=== PATIENT | female | born 1950 | race Caucasian/White ===

== ENCOUNTER → 2016-07-28 | Day surgery (SDC) | payer OTHER ==
[~2016-07-28] MED LIST: AFRI0.055; BUPIVACAINE/EPINEPHRINE 0.25% 50 ML VIAL ONE; CLON0.5T PO; GABA800T PO; HYDR-3129 PO; HYDR50TA94; LACTATED RINGER'S 1,000 ML BAG IV ONE; LIDOCAINE 1%/EPINEPHrine 1:100,000 SOLN 20 ML VIAL ONE; LISI-363 PO; LORA-392 PO; METH750T2 PO; MEVA40TA6 PO; MIDAZOLAM HCL 2 MG/2 ML VIAL ONE; NORC10TA2 PO; PROPOFOL 200 MG/20 ML AMP IV ONE; UNKNOWN BP MED; VENL75TA91 PO
--- NOTE | 2016-07-28 13:31 | TN ---
cc: PERCY RECIO M.D. DATE OF SURGERY 07/28/2016 PREOPERATIVE DIAGNOSIS Right hand carpal tunnel syndrome POSTOPERATIVE DIAGNOSIS Right hand carpal tunnel syndrome PROCEDURE Open right carpal tunnel release SURGEON Otilio Recio MD ANESTHESIA TIVA ESTIMATED BLOOD LOSS Minimal INDICATION This is a 66-year female with significant right hand pain and altered sensation. Electrical studies are consistent with carpal tunnel syndrome. This patient presents for surgical treatment. PROCEDURE The patient was brought to the operating given limited sedation. The right hand was scrubbed with alcohol followed by Hibiclens followed Chloraprep and draped sterilely. Antibiotics were given within a one hour time window and a time-out was done. Local anesthesia was utilized. The hand was exsanguinated. The tourniquet was inflated to 250 mmHg. A longitudinal incision was made in line with a flexed fourth ray. The palmar fascia was opened longitudinally. The transverse carpal ligament was opened. The flexor retinaculum was opened. The median nerve was opened into the palm. The recurrent branch was identified and protected. The tourniquet let down. Hemostasis was controlled with bipolar cautery. The skin and subcutaneous tissue was approximated with interrupted 3-0 nylon in a mattress fashion. The patient was awakened and taken to the recovery room in satisfactory condition. MD WAQAR Montelongo/ELLE /1:18 PM /1:25 PM
== END | disposition home or self-care (01) ==
LOC: ESDC 10:16
PROVIDERS: ATTEND Orthopaedic Surgery Orthopaedic Surgery of the Spine
DX: G56.01 Carpal tunnel syndrome, right upper limb (principal)
CPT/HCPCS: 01810; 64721; J2250; J3010; J7120

== ENCOUNTER 2016-10-24 16:19 | Emergency (ER) | payer OTHER ==
[~2016-10-24] VITALS: Ht 157.5 cm; Wt 55.0 kg
[~2016-10-24 16:19] MED LIST changes: -BUPIVACAINE/EPINEPHRINE 0.25% 50 ML VIAL ONE; -LACTATED RINGER'S 1,000 ML BAG IV ONE; -LIDOCAINE 1%/EPINEPHrine 1:100,000 SOLN 20 ML VIAL ONE; -LORA-392 PO; -MIDAZOLAM HCL 2 MG/2 ML VIAL ONE; -PROPOFOL 200 MG/20 ML AMP IV ONE; -UNKNOWN BP MED
[2016-10-24] MEDS ORDERED: HALOPERIDOL LACTATE 5 MG/ML AMP IM ONE (16:45)
[2016-10-24] MEDS ORDERED: LORazepam 2 MG/ML VIAL IM ONE (16:45)
--- NOTE | 2016-10-24 16:50 | PD ---
HPI Chief Complaint: Lindsay act Time Seen by Provider: 16:32 Travel History International Travel<30 days: No Contact w/Intl Traveler<30days: No Traveled to known affect area: No History of Present Illness HPI The patient is a 66-year-old female who presents to the emergency department via police custody as a Lindsay act. According to police affidavit the officer went to conduct a well being checked on the patient after Dr. Leong evaluated the patient earlier in the day and heard her make suicidal statements and that she has plans on how she wants to harm herself. Upon arrival the patient is aggressive, spitting at staff, trying the bite and scratch staff, and refuses to answer questions. The patient will not answer questions in regards to A&Os and will not answer questions in regards to suicidal or homicidal ideation. The patient provides no further insight into her current medical condition. PFSH Past Medical History Arthritis: Yes Autoimmune Disease: No Blood Disorders: No Anxiety: Yes (PANIC ATTACKS) Depression: Yes Heart Rhythm Problems: No Cancer: No Cardiovascular Problems: Yes (STENTS) High Cholesterol: Yes Chest Pain: Yes Congestive Heart Failure: No Diabetes: No Diminished Hearing: No Endocrine: No Gastrointestinal Disorders: No Glaucoma: No Genitourinary: No Headaches: Yes Hiatal Hernia: No Hypertension: Yes Immune Disorder: No Musculoskeletal: Yes (ARTHRITIS) Neurologic: Yes (PINCHED NERVES FEET) Psychiatric: Yes (PANIC ATTACKS) Reproductive: No Respiratory: No Sickle Cell Disease: No Thyroid Disease: No Menopausal: Yes Past Surgical History Abdominal Surgery: Yes (ABD. HERNIA REP.) AICD: No Arteriovenous Shunt: No Body Medical Devices: LEFT ANKLE, LUMBAR & CERVICAL HARDWARE Cardiac Surgery: Yes (STENTS) Ear Surgery: No Endocrine Surgery: No Eye Surgery: No Genitourinary Surgery: No Gynecologic Surgery: Yes (TUBAL) Insulin Pump: No Joint Replacement: Yes (NARENDRA. HIPS, RIGHT SHOULDER) Neurologic Surgery: Yes (LUMBAR AND CERVICAL FUSION) Oral Surgery: Yes (T & A) Pacemaker: No Thoracic Surgery: No Social History Alcohol Use: Yes (RARELY) Tobacco Use: No Substance Use: No Allergies-Medications (Allergen,Severity, Reaction): Coded Allergies: Cymbalta (Verified Allergy, Severe, IBS, 10/24/16) Morphine (Verified Allergy, Severe, SEVERE AGITATION, 10/24/16) Reported Meds & Prescriptions Reported Meds & Active Scripts Active Reported Ativan (Lorazepam) 0.5 Mg Tab 0.5 Mg PO DAILY PRN [Unknown Bp Med] Review of Systems ROS Limitations: Combative, Psychotic Except as stated in HPI: all other systems reviewed are Neg Psychiatric: Positive: Suicidal Ideations (per the Lindsay act) Physical Exam Exam Limitations: Combative, Psychotic Narrative GENERAL: Awake, alert, 66-year-old female who is combative and actively trying to scratch and spit on medical staff. SKIN: Focused skin assessment warm/dry. HEAD: Atraumatic. Normocephalic. EYES: Pupils equal and round. Pupils are 4 mm bilateral and reactive. ENT: No nasal bleeding or discharge. Mucous membranes pink and moist. NECK: Trachea midline. No JVD. CARDIOVASCULAR: Regular rate and rhythm. No murmur appreciated. RESPIRATORY: No accessory muscle use. Clear to auscultation. Breath sounds equal bilaterally. GASTROINTESTINAL: Abdomen soft, non-tender, nondistended. MUSCULOSKELETAL: No obvious deformities. No clubbing. No cyanosis. No edema. NEUROLOGICAL: Awake, combative, no obvious cranial nerve deficits. Moves all 4 extremities. Speech is normal. PSYCHIATRIC: Aggressive, combative. Data Data Last Documented VS Vital Signs Date Time Temp Pulse Resp B/P Pulse Ox O2 Delivery O2 Flow Rate FiO2 10/24/16 18:05 97.6 99 20 148/89 97 Orders Complete Blood Count With Diff (10/24/16 16:40) Comprehensive Metabolic Panel (10/24/16 16:40) Thyroid Stimulating Hormone (10/24/16 16:40) Urinalysis - C+S If Indicated (10/24/16 16:40) Psych Screen (10/24/16 16:40) Haloperidol Inj (Haldol Inj) (10/24/16 16:45) Lorazepam Inj (Ativan Inj) (10/24/16 16:45) Restraints Violent (10/24/16 16:40) Drug Screen, Random Urine (10/24/16 16:40) Alcohol (Ethanol) (10/24/16 16:40) Labs Laboratory Tests Test 10/24/16 10/24/16 16:28 16:30 Urine Color LIGHT-YELLOW Urine Turbidity CLEAR Urine pH 6.0 Urine Specific [place] 1.005 Urine Protein NEG mg/dL Urine Glucose (UA) 300 mg/dL Urine Ketones NEG mg/dL Urine Occult Blood MOD Urine Nitrite NEG Urine Bilirubin NEG Urine Urobilinogen LESS THAN 2.0 MG/DL Urine Leukocyte Esterase SMALL Urine RBC 1 /hpf Urine WBC 1 /hpf Urine Squamous Epithelial <1 /hpf Cells Urine Bacteria RARE /hpf Microscopic Urinalysis Comment CULT NOT INDICATED Urine Opiates Screen POS Urine Barbiturates Screen NEG Urine Amphetamines Screen NEG Urine Benzodiazepines Screen NEG Urine Cocaine Screen NEG Urine Cannabinoids Screen NEG White Blood Count 12.7 TH/MM3 Red Blood Count 3.99 MIL/MM3 Hemoglobin 12.4 GM/DL Hematocrit 36.6 % Mean Corpuscular Volume 91.7 FL Mean Corpuscular Hemoglobin 31.0 PG Mean Corpuscular Hemoglobin 33.8 % Concent Red Cell Distribution Width 14.3 % Platelet Count 359 TH/MM3 Mean Platelet Volume 7.7 FL Neutrophils (%) (Auto) 64.0 % Lymphocytes (%) (Auto) 26.2 % Monocytes (%) (Auto) 6.4 % Eosinophils (%) (Auto) 3.0 % Basophils (%) (Auto) 0.4 % Neutrophils # (Auto) 8.2 TH/MM3 Lymphocytes # (Auto) 3.3 TH/MM3 Monocytes # (Auto) 0.8 TH/MM3 Eosinophils # (Auto) 0.4 TH/MM3 Basophils # (Auto) 0.1 TH/MM3 CBC Comment DIFF FINAL Differential Comment Sodium Level 135 MEQ/L Potassium Level 3.8 MEQ/L Chloride Level 99 MEQ/L Carbon Dioxide Level 25.4 MEQ/L Anion Gap 11 MEQ/L Blood Urea Nitrogen 15 MG/DL Creatinine 0.89 MG/DL Estimat Glomerular Filtration 64 ML/MIN Rate Random Glucose 102 MG/DL Calcium Level 9.5 MG/DL Total Bilirubin 0.4 MG/DL Aspartate Amino Transf 17 U/L (AST/SGOT) Alanine Aminotransferase 21 U/L (ALT/SGPT) Alkaline Phosphatase 65 U/L Total Protein 7.4 GM/DL Albumin 3.7 GM/DL Thyroid Stimulating Hormone 1.910 uIU/ML 3rd Gen Ethyl Alcohol Level LESS THAN 3 MG/DL MDM Medical Decision Making Medical Screen Exam Complete: Yes Emergency Medical Condition: Yes Medical Record Reviewed: Yes Interpretation(s) Laboratory Tests Test 10/24/16 10/24/16 16:28 16:30 Urine Color LIGHT-YELLOW Urine Turbidity CLEAR Urine pH 6.0 Urine Specific [place] 1.005 Urine Protein NEG mg/dL Urine Glucose (UA) 300 mg/dL Urine Ketones NEG mg/dL Urine Occult Blood MOD Urine Nitrite NEG Urine Bilirubin NEG Urine Urobilinogen LESS THAN 2.0 MG/DL Urine Leukocyte Esterase SMALL Urine RBC 1 /hpf Urine WBC 1 /hpf Urine Squamous Epithelial <1 /hpf Cells Urine Bacteria RARE /hpf Microscopic Urinalysis Comment CULT NOT INDICATED Urine Opiates Screen POS Urine Barbiturates Screen NEG Urine Amphetamines Screen NEG Urine Benzodiazepines Screen NEG Urine Cocaine Screen NEG Urine Cannabinoids Screen NEG White Blood Count 12.7 TH/MM3 Red Blood Count 3.99 MIL/MM3 Hemoglobin 12.4 GM/DL Hematocrit 36.6 % Mean Corpuscular Volume 91.7 FL Mean Corpuscular Hemoglobin 31.0 PG Mean Corpuscular Hemoglobin 33.8 % Concent Red Cell Distribution Width 14.3 % Platelet Count 359 TH/MM3 Mean Platelet Volume 7.7 FL Neutrophils (%) (Auto) 64.0 % Lymphocytes (%) (Auto) 26.2 % Monocytes (%) (Auto) 6.4 % Eosinophils (%) (Auto) 3.0 % Basophils (%) (Auto) 0.4 % Neutrophils # (Auto) 8.2 TH/MM3 Lymphocytes # (Auto) 3.3 TH/MM3 Monocytes # (Auto) 0.8 TH/MM3 Eosinophils # (Auto) 0.4 TH/MM3 Basophils # (Auto) 0.1 TH/MM3 CBC Comment DIFF FINAL Differential Comment Sodium Level 135 MEQ/L Potassium Level 3.8 MEQ/L Chloride Level 99 MEQ/L Carbon Dioxide Level 25.4 MEQ/L Anion Gap 11 MEQ/L Blood Urea Nitrogen 15 MG/DL Creatinine 0.89 MG/DL Estimat Glomerular Filtration 64 ML/MIN Rate Random Glucose 102 MG/DL Calcium Level 9.5 MG/DL Total Bilirubin 0.4 MG/DL Aspartate Amino Transf 17 U/L (AST/SGOT) Alanine Aminotransferase 21 U/L (ALT/SGPT) Alkaline Phosphatase 65 U/L Total Protein 7.4 GM/DL Albumin 3.7 GM/DL Thyroid Stimulating Hormone 1.910 uIU/ML 3rd Gen Ethyl Alcohol Level LESS THAN 3 MG/DL Differential Diagnosis Differential diagnosis includes psychosis, bipolar affective disorder, depressive disorder, mood disorder NOS, schizoaffective disorder, delirium, substance-induced mood disorder. Narrative Course The patient was combative and aggressive, therefore, was administered Haldol and Ativan, secondary to the patient trying to bite staff members and being aggressive. Labs were drawn and sent. Labs are essentially unremarkable. Patient is medically cleared to be evaluated by psychiatry. Diagnosis Primary Impression: Suicidal ideation Condition: Stable Perico Osman MD October 24, 2016 16:50
[2016-10-24 17:28] LABS: AUTOMATED NEUTROPHIL # 8.2 TH/MM3 (1.8-7.7); BASOPHIL # 0.1 TH/MM3 (0-0.2); BASOPHIL % 0.4 % (0.0-2.0); EOSINOPHIL # 0.4 TH/MM3 (0-0.4); HEMATOCRIT 36.6 % (35.0-46.0); HEMO FLAGS DIFF FINAL; LYMPH % 26.2 % (9.0-44.0); LYMPHOCYTE # 3.3 TH/MM3 (1.0-4.8); MEAN CELL VOLUME 91.7 FL (80.0-100.0); MEAN CORPUSCULAR HGB CONC 33.8 % (32.0-36.0); MONO % 6.4 % (0.0-8.0); PLATELET COUNT 359 TH/MM3 (150-450); RED BLOOD COUNT 3.99 MIL/MM3 (4.00-5.30); RED CELL DISTRIBUTION WIDTH 14.3 % (11.6-17.2); WHITE BLOOD COUNT 12.7 TH/MM3 (4.0-11.0)
[2016-10-24 17:33] LABS: BACTERIA, URINE RARE /hpf; BLOOD, URINE MOD (NEG); COMMENT (UR) CULT NOT INDICATED; CULTURE IF INDICATED CULT NOT INDICATED; GLUCOSE,URINE 300 mg/dL (NEG); KETONE, URINE NEG (NEG); NITRITE,URINE NEG (NEG); SQUAMOUS EPITHELIAL CELL URINE <1 /hpf (0-5); URINE COLOR LIGHT-YELLOW (YELLW/STRAW)
[2016-10-24 17:36] LABS: AMPHETAMINE, URINE NEG (NEG); BARBITURATES, URINE NEG (NEG); COCAINE, URINE NEG (NEG)
[2016-10-24 17:47] LABS: ANION GAP 11 MEQ/L (5-15); AST (GOT) 17 U/L (15-37); BICARBONATE 25.4 MEQ/L (21.0-32.0); BLOOD UREA NITROGEN 15 MG/DL (7-18); CHLORIDE 99 MEQ/L (98-107); GLOMERULAR FILTRATION RATE 64 ML/MIN (>89); POTASSIUM 3.8 MEQ/L (3.5-5.1); SODIUM (NA) 135 MEQ/L (136-145)
[2016-10-24 17:58] LABS: ALKALINE PHOSPHATASE 65 U/L (45-117); ALT (GPT) 21 U/L (10-53); TOTAL BILIRUBIN ADULT 0.4 MG/DL (0.2-1.0)
[2016-10-24 18:05] VITALS: BP 148/89; PULSE 99; RESP 20; TEMP 97.6; O2SAT 97
[2016-10-24] MEDS ORDERED: UNKNOWN BP MED (18:12)
[2016-10-24] MEDS ORDERED: LORA-392 PO (18:12)
[2016-10-24 19:15] VITALS: BP 106/69; PULSE 78; RESP 14; O2SAT 97
[2016-10-25 01:22] VITALS: BP 104/55; PULSE 66; RESP 14; O2SAT 97
[2016-10-25] MEDS ORDERED: ACETAMINOPHEN 325 MG TAB PO ONE (03:30)
[2016-10-25 05:28] VITALS: BP 110/60; PULSE 68; RESP 16; O2SAT 98
[2016-10-25 11:14] VITALS: TEMP 97.9
--- NOTE | 2016-10-26 15:37 | PD ---
History of Present Illness Chief Complaint: Psychiatric Symptoms Time Seen by Provider: 10:40 Travel History International Travel<30 Days: No Contact w/Intl Traveler<30days: No Known affected area: No Legal Status Legal Status: Lindsay Act Lindsay Act Signed By: Sofya Green History of Present Illness: History of Present Illness HPI The patient is a 66-year-old female with hx of chronic pain, as well as anxiety who presents to the emergency department via police custody as a Lindsay act. According to police affidavit the officer went to conduct a well being checked on the patient after Dr. Leong evaluated the patient earlier in the day and heard her make suicidal statements and that she has plans on how she wants to harm herself. The patient was not BA by the physician but rather he called for a well being check to be conducted. The patient did not make any attempts at harming herself. Patient was aggressive when she arrived to ED and required medication. This morning she is alert, oriented, calm and cooperative. She appears tired. her speech is clear and logical, no pressure. No eleuterio. No psychosis and no suicidal or homicidal ideation. She states that she was upset because she had discussed having suicidal thoughts with her therapist a week prior to her being placed under a BA and she told her that " I would never do anything as long as I was healthy". She has never made any attempts at harming herself and staes that " I have my garden, my sister, my and I would not do that". PFSH Past Medical History Arthritis: Yes Autoimmune Disease: No Blood Disorders: No Anxiety: Yes (PANIC ATTACKS) Depression: Yes Heart Rhythm Problems: No Cancer: No Cardiovascular Problems: Yes (STENTS) High Cholesterol: Yes Chest Pain: Yes Congestive Heart Failure: No Diabetes: No Diminished Hearing: No Endocrine: No Gastrointestinal Disorders: No Glaucoma: No Genitourinary: No Headaches: Yes Hiatal Hernia: No Hypertension: Yes Immune Disorder: No Implanted Vascular Access Dvce: Yes Musculoskeletal: Yes (ARTHRITIS) Neurologic: Yes (PINCHED NERVES FEET) Psychiatric: Yes (PANIC ATTACKS) Reproductive: No Respiratory: No Sickle Cell Disease: No Thyroid Disease: No Tetanus Vaccination: Unknown ?: Not Menopausal: Yes Past Surgical History Abdominal Surgery: Yes (ABD. HERNIA REP.) AICD: No Arteriovenous Shunt: No Body Medical Devices: LEFT ANKLE, LUMBAR & CERVICAL HARDWARE Cardiac Surgery: Yes (STENTS) Ear Surgery: No Endocrine Surgery: No Eye Surgery: No Genitourinary Surgery: No Gynecologic Surgery: Yes (TUBAL) Insulin Pump: No Joint Replacement: Yes (NARENDRA. HIPS, RIGHT SHOULDER) Neurologic Surgery: Yes (LUMBAR AND CERVICAL FUSION) Oral Surgery: Yes (T & A) Pacemaker: No Thoracic Surgery: No Other Surgery: Yes Psychiatric History Psychiatric History Hx Psychiatric Treatment: [facility]. History of Inpatient Treatment: No Guns or firearms in home: No Social History female. Lives with her . Is on disability. Hx Alcohol Use: Yes (RARELY) Hx Tobacco Use: No Hx Substance Use: No Hx of Substance Use Treatment: No Family Psychiatric History negative Allergies-Medications (Allergen,Severity, Reaction): Coded Allergies: Cymbalta (Verified Allergy, Severe, IBS, 10/24/16) Morphine (Verified Allergy, Severe, SEVERE AGITATION, 10/24/16) Reported Meds & Prescriptions Reported Meds & Active Scripts Active Reported Ativan (Lorazepam) 0.5 Mg Tab 0.5 Mg PO DAILY PRN [Unknown Bp Med] Review of Systems Except as stated in HPI: all other systems reviewed are Neg Psychiatric: COMPLAINS OF: Anxiety Exam Alert: Yes [place]: Person (ox4) Mood: Anxious Affect: Appropriate Speech: Clear, Logical Eye Contact: Normal Memory Intact: Comment (no impairment) Hallucinations: Other (neagtive) Delusions: No Suicidal: Ideation (denies any) Homicidal: Ideation (denies any) Insight/Judgement Fair. Not impaired. MDM Medical Decision Making Medical Record Reviewed: Yes Assessment/Plan 66 year old female with history of anxiety who is under a BA. Patient did not make any attempt and it is reported that she did talk about suicide with her therapist one week ago. She was seen at the psychiatrist office but he did not place her under a BA but rather called the police for a well being check. At this time this patient does not meet criteria for BA. She is requesting discharge from this facility and will follow up with her outpatient provider. Diagnosis Primary Impression: Anxiety Ruled Out: Suicidal ideation Departure Forms: Tests/Procedures Patient Instructions: General Instructions, Suicide Prevention for Older Adults (ED) Med/ Other Pt Specific Info: No Change to Meds Disposition: 01 DISCHARGE HOME Condition: Stable Lorna Gillespie October 26, 2016 15:37
== END 2016-10-25 11:30 | disposition home or self-care (01) ==
LOC: NEPE 16:19
DX: F41.9 Anxiety disorder, unspecified (principal); E78.00 Pure hypercholesterolemia, unspecified; I10 Essential (primary) hypertension; Z95.5 Presence of coronary angioplasty implant and graft
CPT/HCPCS: 80053; 80307; 81001; 84443; 85025; 96372; 99284; J1630; J2060